=== PATIENT | female | born 1985 | race Caucasian/White ===

== ENCOUNTER 2016-11-27 19:01 | Emergency (ER) | payer BC ==
[~2016-11-27] VITALS: Ht 157.5 cm; Wt 50.8 kg
[2016-11-27] MEDS ORDERED: traMADol 50mg tab ORAL ONE (19:30)
[2016-11-27] MEDS ORDERED: Surgicel 4in x 8in TOPIC ONE (19:30)
[2016-11-27] MEDS ORDERED: TdaP Vaccine 0.5ml Syr IM ONE (19:30)
[2016-11-27] MEDS ORDERED: IBUPROFEN600 MG ORAL (20:40)
[2016-11-27] MEDS ORDERED: CEPHALEXIN500 MG ORAL (20:40)
[2016-11-27 20:55] VITALS: BP 106/72
--- NOTE | 2016-11-27 22:33 | Emergency Room Report ---
History of Present Illness General Chief Complaint: Laceration Present Illness HPI The patient is a 31-year-old female presenting with left third finger laceration. Patient states that she was cutting in the kitchen when the knife slipped. Patient states that she cut off the tip of her finger. Pain is described as a 10 out of 10 dull ache to the left third digit and does not radiate. Patient denies any other symptoms including numbness or tingling of the finger. The patient states last tetanus shot was more than 10 years prior. Allergies: Coded Allergies: No Known Allergies (Unverified , 11/27/16) Patient History Past Medical History: see triage record Pertinent Family History: none Last Menstrual Period: 2 months ago Now: No Reviewed Nursing Documentation: PMH: Agreed, PSxH: Agreed Nursing Documentation-PMH Past Medical History: No Stated History Review of Systems All Other Systems: negative except mentioned in HPI Physical Exam Vital Signs Date Time Temp Pulse Resp B/P Pulse Ox O2 Delivery O2 Flow Rate FiO2 11/27/16 19:14 98.1 97 18 128/78 98 Room Air Sp02 EP Interpretation: reviewed, normal General Appearance: no apparent distress, alert, GCS 15, non-toxic Head: normocephalic, atraumatic Eyes: bilateral eye PERRL, bilateral eye normal inspection Musculoskeletal: gait/station normal, normal range of motion, tender - TTP over distal L 3rd finger Neurologic: alert, oriented x3, responsive, motor strength/tone normal, sensory intact, speech normal Psychiatric: judgement/insight normal, memory normal, mood/affect normal, no suicidal/homicidal ideation Skin: normal color, well hydrated, normal turgor, laceration - The distal end of the left third digit has been avulsed distal to the nail. There is active bleeding. Lymphatic: no adenopathy Procedures Splinting Splinting : Consent: Verbal Location: L finger Pre-Made Type: metal Splint: finger Pre-Proc Neuro Vasc Exam: normal Post-Proc Neuro Vasc Exam: normal Patient Tolerated: Well Complications: None Laceration/Wound Repair Laceration/Wound Repair : Consent: Verbal Wound Location: upper extremity - L 3rd finger Wound's Depth, Shape: other - avulsion Wound Length (cm): 1 Wound Explored: clean Irrigated w/ Saline (ccs): 200 Betadine Prep?: Yes Volume Anesthetic (ccs): 0 Wound Debrided: minimal Wound Repaired With: Dermabond - Surgicel was used Sterile Dressing Applied?: Yes Splint Applied?: Yes Type of Splint Applied: finger Sling Applied?: No Patient Tolerated: Well Complications: None Medical Decision Making PA Attestation Dr. Camp is my supervising physician. Patient management was discussed with my supervising physician Diagnostic Impression: Primary Impression: Avulsion of skin of finger ER Course The patient is a 31-year-old female presenting with left third finger laceration. Ddx considered include but not limited to fracture, tendon/ligament injury, avulsion, nerve damage PE: Vitals WNL. NAD The distal end of the left third digit has been avulsed distal to the nail. There is active bleeding.Sensation intact proximal to the avulsion. Full active range of motion of the finger. Tetanus shot given. The wound was copiously irrigated with normal saline and Betadine. Surgicel was placed and bleeding has stopped. Wound is wrapped in sterile dressing and a finger splint is placed. The patient will follow up with primary care doctor. ER precautions are given. Patient is given prescription for Keflex. Last Vital Signs Date Time Temp Pulse Resp B/P Pulse Ox O2 Delivery O2 Flow Rate FiO2 11/27/16 19:14 98.1 97 18 128/78 98 Room Air Disposition: HOME, SELF-CARE Condition: Improved Scripts Cephalexin* (KEFLEX*) 500 Mg Capsule 500 MG ORAL EVERY 12 HOURS, #14 CAP 0 Refills Prov: CESARIO JENKINS P.A. 11/27/16 Ibuprofen* (MOTRIN*) 600 Mg Tablet 600 MG ORAL Q8H Y for For Pain, #30 TAB 0 Refills Prov: TERNELLAANCESARIO P.A. 11/27/16 Referrals: NOT CHOSEN IPA/,REFERRING (PCP) Patient Instructions: Deep Skin Avulsion, Nonsutured Laceration Care Additional Instructions: I discussed my findings with the patient. All questions and concerns have been answered. Treatment and medication compliance have been addressed. I advised the patient that they need to follow up with PMD in 3-5 days. Return to ED if symptoms worsen, new symptoms arise, or if needed for any reason. Patient verbalized understanding of discharge instructions. CESARIO JENKINS Nov 27, 2016 22:33
== END 2016-11-27 20:55 | disposition home or self-care (01) ==
LOC: EMR 19:46
DX: S61.313A Laceration without foreign body of left middle finger with damage to nail, initial encounter (principal); W26.0XXA Contact with knife, initial encounter; Y92.9 Unspecified place or not applicable; Z23 Encounter for immunization
CPT/HCPCS: 29130; 90471; 90715

== ENCOUNTER 2017-01-03 16:30 | Emergency (ER) | payer BC ==
[~2017-01-03] VITALS: Ht 157.5 cm; Wt 50.8 kg
[~2017-01-03 16:30] MED LIST: CEPHALEXIN500 MG ORAL; IBUPROFEN600 MG ORAL
--- NOTE | 2017-01-03 17:05 | Emergency Room Report ---
History of Present Illness General Chief Complaint: Wound Recheck/Suture Removal Source: Patient Present Illness HPI 31 YO Female presents to the ED c/o delayed healing of previously avulsed distal left middle finger laceration that was closed by secondary intent and hemostasis achieved by Surgicel. Pt states PCP recommended ED eval for possible plastics consult. pt reports Tenderness to palpation, and increased sensitivity. She states that laceration occurred over 6 weeks ago. Erythema reports mild clear drainage. Denies any nausea vomiting fevers or chills. Denies numbness tingling or gross loss of sensation or loss of gross motor movements of the extremity. Allergies: Coded Allergies: No Known Allergies (Unverified , 11/27/16) Patient History Past Medical History: see triage record Past Surgical History: none Pertinent Family History: none Now: No Immunizations: UTD Reviewed Nursing Documentation: PMH: Agreed, PSxH: Agreed Nursing Documentation-PMH Past Medical History: No Stated History Review of Systems All Other Systems: negative except mentioned in HPI Physical Exam Vital Signs Date Time Temp Pulse Resp B/P Pulse Ox O2 Delivery O2 Flow Rate FiO2 01/03/17 16:48 98.2 72 20 120/70 98 Room Air Sp02 EP Interpretation: reviewed, normal General Appearance: no apparent distress, alert, GCS 15, non-toxic Head: normocephalic, atraumatic Eyes: bilateral eye PERRL, bilateral eye normal inspection ENT: hearing grossly normal, normal pharynx, no angioedema, normal voice Respiratory: lungs clear, normal breath sounds, speaking full sentences Cardiovascular #1: regular rate, rhythm Cardiovascular #2: 2+ radial (R), 2+ radial (L) Musculoskeletal: back normal, gait/station normal, normal range of motion, non- tender, tender - TTP to distal left middle finger, no bruising, no bony TTP, FROM of joints of the extremity, eschar scab noted less than 1cm in size. Neurologic: alert, oriented x3, responsive, motor strength/tone normal, sensory intact, speech normal Psychiatric: judgement/insight normal, memory normal, mood/affect normal, no suicidal/homicidal ideation Skin: normal color, no rash, warm/dry, well hydrated, wd healing/no infection noted - eschar scab noted less than 1cm in size. no erythema, no obvious d/c noted at this time. Medical Decision Making PA Attestation Dr. Medrano is my supervising Physician whom patient management has been discussed with. Diagnostic Impression: Primary Impression: Encounter for re-check of laceration wound ER Course Very pleasant 31 YO female presented to the ED c/o delayed healing of previously avulsed distal middle finger laceration that was closed by secondary intent and hemostasis achieved by surgicel. Pt states PCP recommended ED eval for possible plastics consult. Ddx considered but are not limited to laceration, tendon injury, cellulitis, dehiscence. Vital signs: are WNL, pt. is afebrile, pt. is non-toxic in appearance, NAD. H&PE are most consistent with: healing distal finger avulsion of the left middle finger. eschar noted, no appreciable erythema no increased temperature to palpation. ORDERS: -- X-ray Left hand 3 views - negative for fx, Dislocation, or significant soft tissue injury, no indication of osteomyelitis per preliminary read in ED by Dr. Medrano ED INTERVENTIONS: - d/w pt. that she will be given referral for hand specialist dr. De La Cruz DISCHARGE: At this time pt. is stable for d/c to home. Will provide printed patient care instructions, and any necessary prescriptions. Care plan and follow up instructions have been discussed with the patient prior to discharge. Last Vital Signs Date Time Temp Pulse Resp B/P Pulse Ox O2 Delivery O2 Flow Rate FiO2 01/03/17 16:48 98.2 72 20 120/70 98 Room Air Disposition: HOME, SELF-CARE Condition: Stable Patient Instructions: Wound Check Additional Instructions: Take any previously prescribed medications as directed. Follow up with Hand Specialist Dr. De La Cruz in 3-5 days -contact information is provided, please call to make an appointment. Return sooner to ED if new symptoms occur, or current symptoms become worse. - Please note that this Emergency Department Report was dictated using [employer] software, occasionally this can lead to erroneous entry secondary to interpretation by the dictation equipment. Lizzeth Valentine Jan 03, 2017 17:05
[2017-01-03 18:59] VITALS: BP 124/71
[2017-01-03 19:00] VITALS: BP 124/71
--- NOTE | 2017-01-04 09:57 | Diagnostic Imaging Report ---
Indication: PAIN Technique: 3 views left hand Comparison: none Findings: No acute fractures. No dislocations. There is evidence of soft tissue injury of the terminal tuft of the third digit. No radiopaque foreign body Impression: No acute bony trauma
== END 2017-01-03 19:01 | disposition home or self-care (01) ==
LOC: EMR 17:30
DX: S61.213D Laceration without foreign body of left middle finger without damage to nail, subsequent encounter (principal)
CPT/HCPCS: 99281